=== PATIENT | female | born 1955 | race Caucasian/White ===

== ENCOUNTER 2017-07-14 12:12 | Emergency (ER) | payer BC ==
[~2017-07-14] VITALS: Ht 157.5 cm; Wt 76.8 kg
[2017-07-14] MEDS ORDERED: albuterol 2.5 MG/3 ML nebule NEB ONE ×2 (13:55→15:25)
[2017-07-14] MEDS ORDERED: normal saline 1000ML IV soln IV ONE (13:55)
[2017-07-14] MEDS ORDERED: methylPREDNISolone sod succ 125mg/2ml vial IV ONE (13:55)
[2017-07-14 14:25] LABS: BASOPHILS % (AUTO) 0.3 % (0-1); EOSINOPHILS % (AUTO) 0.2 % (0-6); LYMPHOCYTES # (AUTO) 0.7 X10'3 (1.1-4.8); LYMPHOCYTES % (AUTO) 21.2 % (21-51); MEAN CORPUSCULAR HEMOGLOBIN 30.3 PG (27.0-31.0); MEAN CORPUSCULAR HGB CONC 34.2 % (33.0-36.5); MEAN CORPUSCULAR VOLUME 88.7 FL (78-98); MEAN PLATELET VOLUME 8.3 FL (7.4-10.4); MONOCYTES # (AUTO) 0.5 X10'3 (0-0.9); NEUTROPHILS % (AUTO) 62.3 % (42-75); PLATELET COUNT 214 X10'3 (140-440); RED BLOOD COUNT 4.96 X10'6 (4.20-5.60); WHITE BLOOD COUNT 3.3 X10'3 (4.5-11.0)
[2017-07-14] MEDS ORDERED: oseltamivir phos 75mg capsule PO ONE (14:30)
[2017-07-14 14:40] LABS: ALANINE AMINOTRANSFERASE 36 U/L (12-78); ALBUMIN 3.7 G/DL (3.4-5.0); ALKALINE PHOSPHATASE 92 IU/L (46-116); ANION GAP 12 (8-16); ASPARTATE AMINO TRANSFERASE 29 U/L (10-37); BILIRUBIN,TOTAL 0.5 MG/DL (0.1-1.0); BLOOD UREA NITROGEN 12 MG/DL (7-18); CALCIUM 8.5 MG/DL (8.5-10.1); CHLORIDE 102 MMOL/L (99-107); GLUCOSE 106 MG/DL (70-104); POTASSIUM 3.4 MMOL/L (3.5-5.1); SODIUM 137 MMOL/L (135-145); TOTAL CARBON DIOXIDE 22.9 MMOL/L (24-32); TOTAL PROTEIN 7.4 G/DL (6.4-8.2); eGFR 73 ML/MIN
[2017-07-14] MEDS ORDERED: potassium Cl oral solution 20 MEQ/15 ML PO ONE (14:45)
[2017-07-14] MEDS ORDERED: TAM75C PO (15:53)
[2017-07-14] MEDS ORDERED: ALBU6.7H INH (15:53)
[2017-07-14] MEDS ORDERED: GUAI473S11 PO (15:53)
[2017-07-14 16:23] VITALS: BP 143/78
== END 2017-07-14 16:28 | disposition home or self-care (01) ==
LOC: ER 12:13
DX: J11.1 Influenza due to unidentified influenza virus with other respiratory manifestations (principal); E86.0 Dehydration; E87.6 Hypokalemia; J18.9 Pneumonia, unspecified organism; J45.909 Unspecified asthma, uncomplicated; Z88.1 Allergy status to other antibiotic agents
CPT/HCPCS: 36415; 71010; 80053; 83605; 85025; 87040; 87502; 87503; 93005; 94640; 96361; 96374; 99285; J2930; J7030

== ENCOUNTER 2020-02-15 20:21 | Emergency (ER) | payer BC ==
[~2020-02-15] VITALS: Ht 157.5 cm; Wt 70.0 kg
[~2020-02-15 20:21] MED LIST: ALBU6.7H9 INH
[2020-02-15 20:29] VITALS: BP 150/84
[2020-02-15] MEDS ORDERED: HYDROcodone/acetaminophen 5mg/325mg tablet PO ONE (21:45)
== END 2020-02-15 22:00 | disposition home or self-care (01) ==
LOC: ER 20:21
DX: M25.532 Pain in left wrist (principal); J45.909 Unspecified asthma, uncomplicated; M19.90 Unspecified osteoarthritis, unspecified site; G89.29 Other chronic pain; Z79.899 Other long term (current) drug therapy; Z88.0 Allergy status to penicillin; Z88.1 Allergy status to other antibiotic agents; W01.0XXA Fall on same level from slipping, tripping and stumbling without subsequent striking against object, initial encounter; Y93.G1 Activity, food preparation and clean up; Y92.000 Kitchen of unspecified non-institutional (private) residence as the place of occurrence of the external cause; Y99.8 Other external cause status
CPT/HCPCS: 29125; 73110; 99283